=== PATIENT | female | born 1970 | race African-American/Black ===

== ENCOUNTER 2024-06-29 10:30 | Emergency (ER) | payer BC ==
[~2024-06-29] VITALS: Ht 177.8 cm; Wt 100.0 kg
[2024-06-29 10:31] VITALS: O2SAT 100
[2024-06-29 11:21] LABS: BASOPHILS % 0.7 % (0.0-2.0); EOSINOPHILS % 0.5 % (0.0-5.0); HEMATOCRIT. 35.8 % (36.0-48.0); LYMPHOCYTES % 17.4 % (20.0-50.0); MEAN CORPUSCULAR HEMOGLOBIN 28.8 pg (28.0-32.0); MEAN CORPUSCULAR HGB CONC 33.6 g/dL (31.0-37.0); MEAN CORPUSCULAR VOLUME 85.7 fL (81.0-99.0); MEAN PLATELET VOLUME 9.9 fl (7.4-10.4); MONOCYTES % 8.1 % (2.0-8.0); NEUTROPHILS % 73.3 % (40.0-76.0); PLATELET 230 x1000/uL (130-400); RED BLOOD CELL COUNT 4.17 mill/uL (4.2-5.4); RED CELL DISTRIBUTION WIDTH 13.9 % (11.6-14.6); WHITE BLOOD COUNT 7.2 x1000/uL (4.5-11.0)
[2024-06-29 11:34] LABS: CHLORIDE 106 mEq/L (98-107); POTASSIUM 4.1 mEq/L (3.5-5.1); SODIUM 137 mEq/L (136-145)
[2024-06-29 11:35] LABS: CARBON DIOXIDE 20 mEq/L (21-32)
[2024-06-29 11:36] LABS: CALCIUM 9.8 mg/dL (8.7-10.4)
[2024-06-29 11:41] LABS: CREATININE 1.5 mg/dL (0.6-1.0); GLUCOSE 135 mg/dL (70-105); UREA NITROGEN BLOOD 18 mg/dL (9-23)
[2024-06-29 11:42] LABS: TROPONIN I HIGH SENSITIVITY 8 ng/L (3.0-34)
[2024-06-29] MEDS ORDERED: GUAI600T26 MT (13:03)
[2024-06-29] MEDS ORDERED: BENZ200C52 MT (13:03)
[2024-06-29 13:35] VITALS: BP 93/56; PULSE 54; RESP 15; TEMP 37.05852; O2SAT 100
== END 2024-06-29 14:14 | disposition home or self-care (01) ==
LOC: ER 10:30
DX: B34.9 Viral infection, unspecified (principal); E11.9 Type 2 diabetes mellitus without complications; I10 Essential (primary) hypertension; Z86.73 Personal history of transient ischemic attack (TIA), and cerebral infarction without residual deficits
CPT/HCPCS: 80048; 83880; 85025; 84484; 36415; 71045; 93005; 99291; Z7610 ×3